=== PATIENT | male | born 1970 | race Hispanic/Latino ===

== ENCOUNTER 2023-09-18 20:58 | Emergency (ER) | payer OTHER ==
[~2023-09-18] VITALS: Ht 154.9 cm; Wt 65.3 kg
[2023-09-18 21:51] LABS: BASOPHILS # (AUTO) 0.03 K/uL (0.00-0.20); BASOPHILS % (AUTO) 0.2 % (0.0-5.0); HEMATOCRIT 40.3 % (42-54); IMMATURE GRANULOCYTE ABSOLUTE 0.03 K/uL (0-1); LYMPHOCYTES # (AUTO) 1.1 K/uL (1.0-4.8); LYMPHOCYTES % (AUTO) 8.9 % (21.0-51.0); MEAN CORPUSCULAR HEMOGLOBIN 32.6 pg (27.0-33.0); MEAN CORPUSCULAR VOLUME 93.3 fL (79-99); MONOCYTES # (AUTO) 0.8 K/uL (0.1-1.0); MONOCYTES % (AUTO) 6.2 % (3.0-13.0); NEUTROPHILS # (AUTO) 10.4 K/uL (1.8-7.7); NEUTROPHILS % (AUTO) 84.5 % (40.0-77.0); PLATELET COUNT (AUTO) 276 K/uL (130-400); RED BLOOD CELL COUNT(AUTO) 4.32 MIL/uL (4.50-6.20); RED CELL DISTRIBUTION WIDTH 12.3 % (11.0-15.5); WHITE BLOOD COUNT (AUTO) 12.3 K/uL (4.8-10.8)
[2023-09-18 22:08] LABS: CREATININE 1.1 mg/dL (0.5-1.3)
[2023-09-18] MEDS: 0.9%NACL 1000ML 1,000 ML IV ONE (22:12)
[2023-09-18 22:13] LABS: BILIRUBIN,TOTAL 0.3 mg/dL (0.2-1.0)
[2023-09-18] MEDS: INSULIN HUMULIN R 100 UNIT/ML 3ML IV ONE (22:13)
[2023-09-18] MEDS ORDERED: 0.9%NACL 1000ML 1,000 ML IV ONE (22:30)
[2023-09-18] MEDS ORDERED: METF-446 PO (23:09)
[2023-09-18 23:15] VITALS: BP 134/74; PULSE 82; RESP 18; O2SAT 99
== END 2023-09-19 01:09 ==
LOC: EEVIPCON 20:58 → EDH 20:58
DX: E11.65 Type 2 diabetes mellitus with hyperglycemia (principal); I10 Essential (primary) hypertension; E86.0 Dehydration
CPT/HCPCS: 99284; 96374; 96361; 80053; 85025; 82948 ×2; 82010; 36415; J1815; J7030